=== PATIENT | female | born 1990 | race Caucasian/White ===

== ENCOUNTER 2017-09-29 17:22 | Inpatient (IN) | payer MEDICAID ==
[2017-09-29 18:55] LABS: ADD MAN DIFF? NO
[2017-09-29 18:56] LABS: WHITE BLOOD COUNT 9.2 10^3/ul (4.8-10.8)
[2017-09-29 18:56] LABS: BASOPHIL # 0.1 10^3/ul (0.0-0.1); BASOPHILS % 0.5 % (0.0-2.0); EOSINOPHILS # 0.1 10^3/ul (0.0-0.5); HEMATOCRIT 40.5 % (37.0-47.0); HEMOGLOBIN 13.7 g/dl (12.0-16.0); LYMPHOCYTES % 32.1 % (15.0-51.0); MEAN CORPUSCULAR HEMOGLOBIN 28.2 pg (29.0-33.0); MEAN CORPUSCULAR HGB CONC 33.8 g/dl (32.0-37.0); MEAN CORPUSCULAR VOLUME 83.3 fl (82.0-101.0); MEAN PLATELET VOLUME 11.1 fl (7.4-10.4); MONOCYTE # 0.5 10^3/ul (0.3-0.9); MONOCYTES % 5.5 % (0.0-11.0); NEUTROPHIL # 5.5 10^3/ul (1.6-7.5); NEUTROPHILS % 59.7 % (39.0-77.0); PLATELET COUNT 212 10^3/UL (140-415); RED BLOOD COUNT 4.86 10^6/ul (4.20-5.40); RED CELL DISTRIBUTION WIDTH 14.5 % (11.5-14.5)
[2017-09-29 19:07] LABS: INR 0.83; PARTIAL THROMBOPLASTIN TIME 29.4 Sec (25.0-35.0); PROTIME 11.5 Sec (11.9-14.9); PT RATIO 0.9
[2017-09-29 19:09] LABS: ALBUMIN/GLOBULIN RATIO 1.14; ANION GAP 15 (8-16); ASPARTATE AMINO TRANSFERASE 27 IU/L (15-46); BLOOD UREA NITROGEN 6 mg/dl (7-20); CARBON DIOXIDE 20 mmol/L (21-31); CHLORIDE 107 mmol/L (97-110); CREATININE 0.54 mg/dl (0.44-1.00); POTASSIUM 3.9 mmol/L (3.5-5.1); SODIUM 138 mmol/L (135-144); TOTAL PROTEIN 7.5 g/dl (6.1-8.1)
[2017-09-29] MEDS: LACTATED RINGER'S 1,000 ML IV (19:09)
[2017-09-29] MEDS: BETAMET NA PHOS/AC(6 MG/ML) 5ML INJ IM (19:10)
[2017-09-29 19:11] LABS: ALANINE AMINOTRANSFERASE 38 IU/L (13-69); ALKALINE PHOSPHATASE 224 IU/L (42-121); GLUCOSE 64 mg/dl (70-220)
[2017-09-29 19:45] LABS: FIBRIN SPLIT PRODUCT <10 ug/ml (<10)
[2017-09-29 20:28] LABS: ADD UMIC YES; UR ASCORBIC ACID NEGATIVE (NEGATIVE); UR BACTERIA FEW /HPF (NONE SEEN); UR BILIRUBIN (Dip) NEGATIVE (NEGATIVE); UR BLOOD (Dip) 1+ mg/dL (NEGATIVE); UR CLARITY CLEAR (CLEAR); UR COLOR STRAW (YELLOW); UR GLUCOSE (Dip) NEGATIVE (NEGATIVE); UR KETONES (Dip) NEGATIVE (NEGATIVE); UR LEUKOCYTE ESTERASE (Dip) NEGATIVE Leu/ul (NEGATIVE); UR NITRITE (Dip) NEGATIVE (NEGATIVE); UR RBC 0 /HPF (0-5); UR SPECIFIC GRAVITY (Dip) 1.004 (1.003-1.030); UR TOTAL PROTEIN (Dip) NEGATIVE (NEGATIVE); UR UROBILINOGEN (Dip) NEGATIVE (NEGATIVE); UR WBC 0 /HPF (0-5)
[2017-09-29] MEDS: LABETALOL 200 MG TAB PO (21:23)
[2017-09-30] MEDS: LACTATED RINGER'S 1,000 ML IV (02:58)
[2017-09-30] MEDS: LABETALOL 200 MG TAB PO ×2 (09:05→20:48)
[2017-09-30] MEDS: BETAMET NA PHOS/AC(6 MG/ML) 5ML INJ IM (18:20)
[2017-09-30 19:18] LABS: COLLECTION PERIOD 24 hrs
[2017-09-30 19:42] LABS: COLLECTION PERIOD 24 hrs; CREATININE CLEARANCE 150.9 mls/min (84.0-162.0); CREATININE,URINE RANDOM 36.67 mg/dl (20-320); SCRET 0.54 mg/dl (0.44-1.00); VOLUME 3200 ml/24hrs; VOLUME 3200 mls
[2017-09-30 22:01] LABS: RAPID PLASMA REAGIN NONREACTIVE (NR)
[2017-10-01] MEDS: LABETALOL 200 MG TAB PO ×2 (08:41→20:48)
[2017-10-02] MEDS: LABETALOL 200 MG TAB PO ×2 (09:23→21:25)
[2017-10-02] MEDS: CIPROFLOXACIN 500 MG TAB PO ×2 (13:03→19:53)
[2017-10-02] MEDS ORDERED: CIPROFLOXACIN 500 MG TAB PO (18:00)
[2017-10-02] MEDS: LACTATED RINGER'S 1,000 ML IV (22:32)
[2017-10-02] MEDS: LABETALOL HCL 20MG INJ IV (22:34)
[2017-10-02] MEDS: MAGNESIUM SULFATE 4 GM/100 ML 100 ML IVPB (23:45)
[2017-10-03] MEDS: MAGNESIUM SULFATE 20 GM/500 ML 500 ML IV ×3 (00:23→22:06)
[2017-10-03 01:35] LABS: ADD MAN DIFF? NO
[2017-10-03 01:40] LABS: BASOPHIL # 0.1 10^3/ul (0.0-0.1); BASOPHILS % 0.7 % (0.0-2.0); EOSINOPHILS % 0.3 % (0.0-7.0); HEMATOCRIT 34.1 % (37.0-47.0); HEMOGLOBIN 11.4 g/dl (12.0-16.0); LYMPHOCYTES # 2.8 10^3/ul (0.8-2.9); LYMPHOCYTES % 26.7 % (15.0-51.0); MEAN CORPUSCULAR HEMOGLOBIN 28.4 pg (29.0-33.0); MEAN CORPUSCULAR HGB CONC 33.4 g/dl (32.0-37.0); MEAN CORPUSCULAR VOLUME 84.8 fl (82.0-101.0); MEAN PLATELET VOLUME 12.3 fl (7.4-10.4); MONOCYTE # 1.1 10^3/ul (0.3-0.9); MONOCYTES % 9.9 % (0.0-11.0); NEUTROPHIL # 6.3 10^3/ul (1.6-7.5); NEUTROPHILS % 59.7 % (39.0-77.0); NUCLEATED RED BLOOD CELLS # 0.2 10^3/ul (0.0-0.0); NUCLEATED RED BLOOD CELLS% 1.7 /100WBC (0.0-0.0); PLATELET COUNT 199 10^3/UL (140-415); RED BLOOD COUNT 4.02 10^6/ul (4.20-5.40); RED CELL DISTRIBUTION WIDTH 14.8 % (11.5-14.5)
[2017-10-03 01:40] LABS: WHITE BLOOD COUNT 10.6 10^3/ul (4.8-10.8)
[2017-10-03] MEDS: LABETALOL HCL 20MG INJ IV ×2 (02:19→03:18)
[2017-10-03 02:30] LABS: HEPATITIS B SURFACE ANTIGEN NEGATIVE (NEGATIVE)
[2017-10-03 02:34] LABS: ALANINE AMINOTRANSFERASE 45 IU/L (13-69); ALBUMIN 3.3 g/dl (3.3-4.9); ALBUMIN/GLOBULIN RATIO 1.13; ALKALINE PHOSPHATASE 207 IU/L (42-121); ANION GAP 13 (8-16); ASPARTATE AMINO TRANSFERASE 33 IU/L (15-46); BLOOD UREA NITROGEN 13 mg/dl (7-20); CALCIUM 8.8 mg/dl (8.4-10.2); CARBON DIOXIDE 21 mmol/L (21-31); CHLORIDE 107 mmol/L (97-110); CREATININE 0.56 mg/dl (0.44-1.00); GLUCOSE 76 mg/dl (70-220); POTASSIUM 3.8 mmol/L (3.5-5.1); SODIUM 137 mmol/L (135-144); TOTAL PROTEIN 6.2 g/dl (6.1-8.1); URIC ACID 4.4 mg/dl (3.1-7.9)
[2017-10-03 02:43] LABS: PROTIME 11.1 Sec (11.9-14.9); PT RATIO 0.9
[2017-10-03 02:44] LABS: PARTIAL THROMBOPLASTIN TIME 26.2 Sec (25.0-35.0)
[2017-10-03] MEDS ORDERED: CITRIC ACID/SODIUM CITRATE 15 ML CUP ×2 (02:45→02:46)
[2017-10-03] MEDS: CITRIC ACID/SODIUM CITRATE 15 ML CUP PO (02:49)
[2017-10-03 03:41] LABS: ADD UMIC NO; UR ASCORBIC ACID NEGATIVE (NEGATIVE); UR BILIRUBIN (Dip) NEGATIVE (NEGATIVE); UR BLOOD (Dip) NEGATIVE (NEGATIVE); UR CLARITY CLEAR (CLEAR); UR COLOR COLORLESS (YELLOW); UR GLUCOSE (Dip) NEGATIVE (NEGATIVE); UR KETONES (Dip) NEGATIVE (NEGATIVE); UR LEUKOCYTE ESTERASE (Dip) NEGATIVE Leu/ul (NEGATIVE); UR NITRITE (Dip) NEGATIVE (NEGATIVE); UR SPECIFIC GRAVITY (Dip) 1.006 (1.003-1.030); UR TOTAL PROTEIN (Dip) NEGATIVE (NEGATIVE); UR UROBILINOGEN (Dip) NEGATIVE (NEGATIVE)
[2017-10-03] MEDS: NIFEdipine 10 MG CAP PO ×3 (04:03→18:14)
[2017-10-03] MEDS ORDERED: hydrALAzine 20 MG INJ (04:16)
[2017-10-03] MEDS: hydrALAzine 20 MG INJ IV (04:25)
[2017-10-03] MEDS: LACTATED RINGER'S 1,000 ML IV ×2 (06:15→18:14)
[2017-10-03] MEDS: CIPROFLOXACIN 500 MG TAB PO (06:15)
[2017-10-03] MEDS: LABETALOL 200 MG TAB PO ×2 (09:36→21:06)
[2017-10-03] MEDS ORDERED: ONDANSETRON 4 MG INJ IV (10:19)
[2017-10-03] MEDS ORDERED: MISOPROSTOL 200 MCG TAB PR (10:30)
[2017-10-03] MEDS ORDERED: FAMOTIDINE 20 MG INJ IV (10:30)
[2017-10-03] MEDS ORDERED: OXYTOCIN 30 UNITS/LR 500 ML IV ×2 (10:30→15:00)
[2017-10-03] MEDS ORDERED: CARBOPROST 250 MCG INJ IM (10:30)
[2017-10-03] MEDS ORDERED: CEFAZOLIN 2 GM/50 ML (PMX) 50 ML IV (10:30)
[2017-10-03] MEDS ORDERED: METHYLERGONOVINE 0.2 MG INJ IM (10:30)
[2017-10-03] MEDS ORDERED: METOCLOPRAMIDE 10 MG INJ IM (10:30)
[2017-10-03] MEDS: DINOPROSTONE 10 MG VAG SUPP VAG (14:21)
[2017-10-03] MEDS ORDERED: BUTORPHANOL 2 MG INJ IV (15:00)
[2017-10-03] MEDS: AMPICILLIN 2 GM/NS (PMX) 100 ML IV (15:10)
[2017-10-03 16:32] LABS: RAPID PLASMA REAGIN NONREACTIVE (NR)
[2017-10-03] MEDS: CIPROFLOXACIN 500 MG TAB GTB (18:14)
[2017-10-03 19:32] LABS: MAGNESIUM 6.3 mg/dl (1.7-2.5)
[2017-10-03] MEDS: AMPICILLIN 1 GM/NS (PMX) 50 ML IV (19:57)
[2017-10-04] MEDS: AMPICILLIN 1 GM/NS (PMX) 50 ML IV ×7 (00:10→23:42)
[2017-10-04] MEDS: NIFEdipine 10 MG CAP PO ×5 (00:12→23:44)
[2017-10-04 01:27] LABS: MAGNESIUM 6.1 mg/dl (1.7-2.5)
[2017-10-04] MEDS: CIPROFLOXACIN 500 MG TAB GTB ×2 (05:58→18:29)
[2017-10-04] MEDS: LACTATED RINGER'S 1,000 ML IV ×4 (06:00→23:37)
[2017-10-04] MEDS: MAGNESIUM SULFATE 20 GM/500 ML 500 ML IV ×2 (08:10→23:39)
[2017-10-04 08:21] LABS: MAGNESIUM 6.6 mg/dl (1.7-2.5)
[2017-10-04] MEDS: LABETALOL 200 MG TAB PO ×2 (09:30→20:43)
[2017-10-04 13:17] LABS: MAGNESIUM 6.8 mg/dl (1.7-2.5)
[2017-10-04] MEDS: DINOPROSTONE 10 MG VAG SUPP VAG (18:24)
[2017-10-04 20:08] LABS: MAGNESIUM 5.3 mg/dl (1.7-2.5)
[2017-10-05 01:56] LABS: MAGNESIUM 5.1 mg/dl (1.7-2.5)
[2017-10-05] MEDS: AMPICILLIN 1 GM/NS (PMX) 50 ML IV ×5 (03:17→18:09)
[2017-10-05] MEDS: NIFEdipine 10 MG CAP PO ×4 (06:40→23:49)
[2017-10-05] MEDS: CIPROFLOXACIN 500 MG TAB GTB ×2 (06:44→18:08)
[2017-10-05] MEDS: LABETALOL 200 MG TAB PO ×2 (08:54→21:14)
[2017-10-05] MEDS: LACTATED RINGER'S 1,000 ML IV (09:44)
[2017-10-05 13:57] LABS: ADD UMIC YES; UR ASCORBIC ACID NEGATIVE (NEGATIVE); UR BILIRUBIN (Dip) NEGATIVE (NEGATIVE); UR BLOOD (Dip) NEGATIVE (NEGATIVE); UR CLARITY CLEAR (CLEAR); UR COLOR YELLOW (YELLOW); UR GLUCOSE (Dip) NEGATIVE (NEGATIVE); UR KETONES (Dip) NEGATIVE (NEGATIVE); UR LEUKOCYTE ESTERASE (Dip) NEGATIVE Leu/ul (NEGATIVE); UR MUCUS FEW /HPF (NONE SEEN); UR NITRITE (Dip) NEGATIVE (NEGATIVE); UR RBC 1 /HPF (0-5); UR SPECIFIC GRAVITY (Dip) 1.021 (1.003-1.030); UR SQUAMOUS EPITHELIAL CELL FEW /HPF (FEW); UR TOTAL PROTEIN (Dip) 1+ mg/dl (NEGATIVE); UR UROBILINOGEN (Dip) NEGATIVE (NEGATIVE); UR WBC 2 /HPF (0-5)
[2017-10-05 14:53] LABS: ADD MAN DIFF? NO
[2017-10-05 15:01] LABS: WHITE BLOOD COUNT 8.3 10^3/ul (4.8-10.8)
[2017-10-05 15:01] LABS: BASOPHILS % 0.4 % (0.0-2.0); EOSINOPHILS # 0.1 10^3/ul (0.0-0.5); HEMATOCRIT 37.4 % (37.0-47.0); HEMOGLOBIN 12.7 g/dl (12.0-16.0); LYMPHOCYTES # 2.3 10^3/ul (0.8-2.9); LYMPHOCYTES % 28.1 % (15.0-51.0); MEAN CORPUSCULAR HEMOGLOBIN 28.6 pg (29.0-33.0); MEAN CORPUSCULAR VOLUME 84.2 fl (82.0-101.0); MEAN PLATELET VOLUME 11.5 fl (7.4-10.4); MONOCYTE # 0.5 10^3/ul (0.3-0.9); MONOCYTES % 6.1 % (0.0-11.0); NEUTROPHIL # 5.3 10^3/ul (1.6-7.5); NEUTROPHILS % 63.7 % (39.0-77.0); PLATELET COUNT 150 10^3/UL (140-415); RED BLOOD COUNT 4.44 10^6/ul (4.20-5.40); RED CELL DISTRIBUTION WIDTH 15.3 % (11.5-14.5)
[2017-10-05 15:24] LABS: INR 0.73; PROTIME 10.3 Sec (11.9-14.9); PT RATIO 0.8
[2017-10-05 15:25] LABS: PARTIAL THROMBOPLASTIN TIME 29.7 Sec (25.0-35.0)
[2017-10-05 15:28] LABS: ALANINE AMINOTRANSFERASE 45 IU/L (13-69); ALBUMIN 3.6 g/dl (3.3-4.9); ALBUMIN/GLOBULIN RATIO 1.05; ALKALINE PHOSPHATASE 297 IU/L (42-121); ANION GAP 15 (8-16); ASPARTATE AMINO TRANSFERASE 33 IU/L (15-46); BLOOD UREA NITROGEN 12 mg/dl (7-20); CALCIUM 6.9 mg/dl (8.4-10.2); CARBON DIOXIDE 20 mmol/L (21-31); CHLORIDE 105 mmol/L (97-110); CREATININE 0.66 mg/dl (0.44-1.00); GLUCOSE 93 mg/dl (70-220); POTASSIUM 3.8 mmol/L (3.5-5.1); SODIUM 136 mmol/L (135-144); URIC ACID 5.5 mg/dl (3.1-7.9)
[2017-10-05 15:30] LABS: MAGNESIUM 4.9 mg/dl (1.7-2.5)
[2017-10-05] MEDS: MAGNESIUM SULFATE 20 GM/500 ML 500 ML IV (18:13)
[2017-10-05] MEDS ORDERED: OXYTOCIN 30 UNITS/LR 500 ML IV ×2 (20:30)
[2017-10-05] MEDS ORDERED: METHYLERGONOVINE 0.2 MG INJ IM (20:30)
[2017-10-05] MEDS ORDERED: CARBOPROST 250 MCG INJ IM (20:30)
[2017-10-05] MEDS ORDERED: MISOPROSTOL 200 MCG TAB PR (20:30)
[2017-10-06 01:28] LABS: MAGNESIUM 4.9 mg/dl (1.7-2.5)
[2017-10-06] MEDS: LACTATED RINGER'S 1,000 ML IV ×3 (03:07→20:11)
[2017-10-06] MEDS: CIPROFLOXACIN 500 MG TAB PO ×2 (05:45→18:24)
[2017-10-06] MEDS: NIFEdipine 10 MG CAP PO ×2 (05:50→12:00)
[2017-10-06] MEDS: LABETALOL 200 MG TAB PO ×2 (09:09→15:25)
[2017-10-06] MEDS ORDERED: CEFAZOLIN 2 GM/50 ML (PMX) 50 ML IVPB (12:38)
[2017-10-06] MEDS: METOCLOPRAMIDE 10 MG INJ IV (12:42)
[2017-10-06] MEDS: FAMOTIDINE 20 MG INJ IV (12:42)
[2017-10-06] MEDS ORDERED: FENTAnyl 50 MCG/ML VIAL (12:59)
[2017-10-06] MEDS ORDERED: morphine SULFATE/PF (10 MG/10 ML) INJ (12:59)
[2017-10-06] MEDS ORDERED: PHENYLephrine (100 MCG/ML) 5ML SYG (12:59)
[2017-10-06] MEDS: CEFAZOLIN 2 GM/50 ML (PMX) 50 ML IVPB (13:10)
[2017-10-06] MEDS ORDERED: DEXAMETHASONE 4 MG/ML 1 ML INJ (13:17)
[2017-10-06] MEDS ORDERED: ONDANSETRON 4 MG INJ (13:17)
[2017-10-06] MEDS: OXYTOCIN 30 UNITS/LR 500 ML IV ×2 (14:26→18:45)
[2017-10-06] MEDS ORDERED: ONDANSETRON 4 MG INJ IV (14:30)
[2017-10-06] MEDS ORDERED: HYDROmorphONE 0.5 MG/0.5 ML SYG IV ×2 (14:30)
[2017-10-06] MEDS ORDERED: ZOLPIDEM 5 MG TAB PO (14:30)
[2017-10-06] MEDS ORDERED: HYDROmorphONE 1 MG/ML SYG IV ×2 (14:30)
[2017-10-06] MEDS ORDERED: NALOXONE (0.4 MG/ML) INJ IV (14:30)
[2017-10-06] MEDS: KETOROLAC 30 MG INJ IV (14:59)
[2017-10-06] MEDS ORDERED: LABETALOL HCL 20MG INJ IV ×2 (15:30→16:00)
[2017-10-06] MEDS ORDERED: LABETALOL HCL 20MG INJ (15:32)
[2017-10-06] MEDS: hydrALAzine 20 MG INJ IV (17:11)
[2017-10-06] MEDS: MAGNESIUM SULFATE 20 GM/500 ML 500 ML IV (17:17)
[2017-10-06] MEDS ORDERED: NA PHOSPHATE/BIPHOS 133 ML ENEMA PR (17:30)
[2017-10-06] MEDS ORDERED: METHYLERGONOVINE 0.2 MG INJ IM (17:30)
[2017-10-06] MEDS ORDERED: HYDROCODONE/APAP (5/325) TAB PO (17:30)
[2017-10-06] MEDS ORDERED: OXYTOCIN 30 UNITS/LR 500 ML IV (17:30)
[2017-10-06] MEDS ORDERED: CARBOPROST 250 MCG INJ IM (17:30)
[2017-10-06] MEDS ORDERED: LANOLIN 7 GM TUBE TOP (17:30)
[2017-10-06] MEDS ORDERED: CEFAZOLIN 2 GM/50 ML (PMX) 50 ML IV (17:30)
[2017-10-06] MEDS ORDERED: MISOPROSTOL 200 MCG TAB PR (17:30)
[2017-10-06] MEDS ORDERED: hydrALAzine 20 MG INJ IV (18:00)
[2017-10-06] MEDS: metroNIDAZOLE 500 MG TAB PO (18:24)
[2017-10-06] MEDS: CLINDAMYCIN 300 MG CAP PO (18:24)
[2017-10-06] MEDS ORDERED: LABETALOL 200 MG TAB PO (21:00)
[2017-10-06] MEDS: CEFAZOLIN 2 GM/50 ML (PMX) 50 ML IV (21:54)
[2017-10-06] MEDS: ACETAMINOPHEN 1000MG/100ML IV 100 ML IVPB (22:26)
[2017-10-06] MEDS: SENNA/DOCUSATE NA (8.6MG/50MG) TAB PO (22:47)
[2017-10-07] MEDS: metroNIDAZOLE 500 MG TAB PO ×4 (00:04→17:50)
[2017-10-07 01:09] LABS: MAGNESIUM 4.3 mg/dl (1.7-2.5)
[2017-10-07] MEDS: LACTATED RINGER'S 1,000 ML IV ×3 (04:52→17:03)
[2017-10-07] MEDS: KETOROLAC 30 MG INJ IV (04:53)
[2017-10-07] MEDS: CEFAZOLIN 2 GM/50 ML (PMX) 50 ML IV ×2 (05:02→13:09)
[2017-10-07] MEDS: CIPROFLOXACIN 500 MG TAB PO ×2 (05:50→17:50)
[2017-10-07] MEDS: IBUPROFEN 800 MG TAB PO ×3 (05:50→21:28)
[2017-10-07 08:58] LABS: ADD MAN DIFF? NO
[2017-10-07] MEDS: SENNA/DOCUSATE NA (8.6MG/50MG) TAB PO ×2 (09:00→21:28)
[2017-10-07 09:17] LABS: BASOPHILS % 0.3 % (0.0-2.0); EOSINOPHILS % 0.1 % (0.0-7.0); HEMATOCRIT 30.1 % (37.0-47.0); HEMOGLOBIN 10.2 g/dl (12.0-16.0); LYMPHOCYTES # 2.5 10^3/ul (0.8-2.9); MEAN CORPUSCULAR HEMOGLOBIN 28.2 pg (29.0-33.0); MEAN CORPUSCULAR HGB CONC 33.9 g/dl (32.0-37.0); MEAN CORPUSCULAR VOLUME 83.1 fl (82.0-101.0); MEAN PLATELET VOLUME 11.1 fl (7.4-10.4); MONOCYTE # 0.6 10^3/ul (0.3-0.9); MONOCYTES % 5.5 % (0.0-11.0); NEUTROPHIL # 6.8 10^3/ul (1.6-7.5); NEUTROPHILS % 68.5 % (39.0-77.0); PLATELET COUNT 133 10^3/UL (140-415); RED BLOOD COUNT 3.62 10^6/ul (4.20-5.40); RED CELL DISTRIBUTION WIDTH 14.3 % (11.5-14.5)
[2017-10-07] MEDS: LABETALOL 200 MG TAB PO ×2 (09:38→21:28)
[2017-10-07] MEDS: ENOXAPARIN 40 MG/0.4 ML SYG SC (09:43)
[2017-10-07 09:45] LABS: POSITIVE DIFF @See below
[2017-10-07] MEDS: BISACODYL 10 MG SUPP PR ×2 (10:30→21:28)
[2017-10-07] MEDS: MAGNESIUM SULFATE 20 GM/500 ML 500 ML IV (13:03)
[2017-10-07] MEDS: OXYCODONE/ACETAMINOPHEN (5/325) TAB PO (22:05)
[2017-10-08] MEDS: metroNIDAZOLE 500 MG TAB PO ×5 (01:03→23:49)
[2017-10-08] MEDS: IBUPROFEN 800 MG TAB PO ×3 (06:58→21:16)
[2017-10-08] MEDS: CIPROFLOXACIN 500 MG TAB PO ×2 (06:58→17:56)
[2017-10-08 07:01] LABS: ADD MAN DIFF? NO
[2017-10-08 07:07] LABS: BASOPHILS % 0.3 % (0.0-2.0); EOSINOPHILS # 0.1 10^3/ul (0.0-0.5); EOSINOPHILS % 1.3 % (0.0-7.0); HEMATOCRIT 29.3 % (37.0-47.0); HEMOGLOBIN 9.8 g/dl (12.0-16.0); LYMPHOCYTES # 2.2 10^3/ul (0.8-2.9); LYMPHOCYTES % 28.2 % (15.0-51.0); MEAN CORPUSCULAR HGB CONC 33.4 g/dl (32.0-37.0); MEAN CORPUSCULAR VOLUME 83.7 fl (82.0-101.0); MEAN PLATELET VOLUME 10.8 fl (7.4-10.4); MONOCYTE # 0.4 10^3/ul (0.3-0.9); MONOCYTES % 5.4 % (0.0-11.0); NEUTROPHIL # 5.1 10^3/ul (1.6-7.5); NEUTROPHILS % 63.9 % (39.0-77.0); PLATELET COUNT 134 10^3/UL (140-415); RED CELL DISTRIBUTION WIDTH 14.8 % (11.5-14.5)
[2017-10-08 07:55] LABS: ALANINE AMINOTRANSFERASE 38 IU/L (13-69); ALBUMIN 2.8 g/dl (3.3-4.9); ALKALINE PHOSPHATASE 188 IU/L (42-121); ANION GAP 11 (8-16); ASPARTATE AMINO TRANSFERASE 27 IU/L (15-46); BLOOD UREA NITROGEN 15 mg/dl (7-20); CALCIUM 7.6 mg/dl (8.4-10.2); CARBON DIOXIDE 23 mmol/L (21-31); CHLORIDE 107 mmol/L (97-110); CREATININE 0.68 mg/dl (0.44-1.00); GLUCOSE 65 mg/dl (70-220); POTASSIUM 4.1 mmol/L (3.5-5.1); SODIUM 137 mmol/L (135-144); TOTAL PROTEIN 5.6 g/dl (6.1-8.1)
[2017-10-08] MEDS: LABETALOL 200 MG TAB PO ×2 (09:13→21:17)
[2017-10-08] MEDS: SENNA/DOCUSATE NA (8.6MG/50MG) TAB PO ×2 (09:13→21:16)
[2017-10-08] MEDS: ENOXAPARIN 40 MG/0.4 ML SYG SC (09:15)
[2017-10-08] MEDS: INFLUENZA VIRUS VACCINE 0.5 ML (DISPENSING) IM* (12:01)
[2017-10-08] MEDS: hydrALAzine 20 MG INJ IV (16:51)
[2017-10-08] MEDS: AMLODIPINE 10 MG TAB PO (18:31)
[2017-10-09] MEDS: metroNIDAZOLE 500 MG TAB PO ×3 (05:55→18:13)
[2017-10-09] MEDS: IBUPROFEN 800 MG TAB PO ×3 (05:55→21:02)
[2017-10-09] MEDS: CIPROFLOXACIN 500 MG TAB PO ×2 (05:59→18:13)
[2017-10-09] MEDS ORDERED: DIPHTH/TET/ACEL PERTUSS (ADULT) 0.5 ML VIAL IM* (09:00)
[2017-10-09] MEDS ORDERED: MEASLES,MUMPS,RUBELLA VACCINE INJ SC* (09:00)
[2017-10-09] MEDS: AMLODIPINE 10 MG TAB PO (09:02)
[2017-10-09] MEDS: SENNA/DOCUSATE NA (8.6MG/50MG) TAB PO ×2 (09:03→20:59)
[2017-10-09] MEDS: LABETALOL 200 MG TAB PO ×2 (09:03→21:00)
[2017-10-09] MEDS: ENOXAPARIN 40 MG/0.4 ML SYG SC (09:05)
[2017-10-09 11:45] LABS: ADD MAN DIFF? NO
[2017-10-09 11:52] LABS: WHITE BLOOD COUNT 11.4 10^3/ul (4.8-10.8)
[2017-10-09 11:52] LABS: BASOPHIL # 0.1 10^3/ul (0.0-0.1); BASOPHILS % 0.6 % (0.0-2.0); EOSINOPHILS # 0.3 10^3/ul (0.0-0.5); EOSINOPHILS % 2.3 % (0.0-7.0); HEMATOCRIT 35.2 % (37.0-47.0); HEMOGLOBIN 11.5 g/dl (12.0-16.0); LYMPHOCYTES % 17.6 % (15.0-51.0); MEAN CORPUSCULAR HGB CONC 32.7 g/dl (32.0-37.0); MEAN CORPUSCULAR VOLUME 85.6 fl (82.0-101.0); MEAN PLATELET VOLUME 10.6 fl (7.4-10.4); MONOCYTE # 0.7 10^3/ul (0.3-0.9); MONOCYTES % 6.5 % (0.0-11.0); NEUTROPHIL # 8.1 10^3/ul (1.6-7.5); NEUTROPHILS % 71.8 % (39.0-77.0); PLATELET COUNT 195 10^3/UL (140-415); RED BLOOD COUNT 4.11 10^6/ul (4.20-5.40); RED CELL DISTRIBUTION WIDTH 14.7 % (11.5-14.5)
[2017-10-09 12:07] LABS: ALANINE AMINOTRANSFERASE 43 IU/L (13-69); ALBUMIN 3.5 g/dl (3.3-4.9); ALBUMIN/GLOBULIN RATIO 1.09; ALKALINE PHOSPHATASE 205 IU/L (42-121); ANION GAP 13 (8-16); ASPARTATE AMINO TRANSFERASE 41 IU/L (15-46); BLOOD UREA NITROGEN 11 mg/dl (7-20); CALCIUM 8.4 mg/dl (8.4-10.2); CARBON DIOXIDE 21 mmol/L (21-31); CHLORIDE 105 mmol/L (97-110); CREATININE 0.58 mg/dl (0.44-1.00); GLUCOSE 92 mg/dl (70-220); POTASSIUM 3.8 mmol/L (3.5-5.1); SODIUM 135 mmol/L (135-144); TOTAL PROTEIN 6.7 g/dl (6.1-8.1)
[2017-10-09 15:01] LABS: ANA SCREEN NEGATIVE (NEGATIVE)
[2017-10-10] MEDS: metroNIDAZOLE 500 MG TAB PO ×4 (00:15→17:42)
[2017-10-10] MEDS: IBUPROFEN 800 MG TAB PO ×3 (05:36→21:04)
[2017-10-10] MEDS: CIPROFLOXACIN 500 MG TAB PO ×2 (05:36→17:42)
[2017-10-10] MEDS: ENOXAPARIN 40 MG/0.4 ML SYG SC (08:46)
[2017-10-10] MEDS: AMLODIPINE 10 MG TAB PO (08:47)
[2017-10-10] MEDS: SENNA/DOCUSATE NA (8.6MG/50MG) TAB PO ×2 (08:48→21:03)
[2017-10-10] MEDS: LABETALOL 200 MG TAB PO ×2 (08:48→21:04)
[2017-10-10 13:33] LABS: SMOOTH MUSCLE AB SCREEN NEGATIVE (NEGATIVE)
== END 2017-10-10 21:50 | disposition home or self-care (01) | DRG 765 ==
LOC: OBT 17:22 → L-D 10-02 23:35 → PP1 10-06 21:03 → L-D 17:41 → OBT 18:15 → L-D 18:15 → PP1 19:24
PROVIDERS: Obstetrics & Gynecology
PROC: 10D00Z1 Extraction of Products of Conception, Low, Open Approach (ICD-10-PCS; principal; 2017-10-06 13:00)
DX: O14.14 Severe pre-eclampsia complicating childbirth (principal); N39.0 Urinary tract infection, site not specified; O75.3 Other infection during labor; O99.824 Streptococcus B carrier state complicating childbirth; O61.0 Failed medical induction of labor; Z37.0 Single live birth; Z3A.34 34 weeks gestation of pregnancy; B96.20 Unspecified Escherichia coli [E. coli] as the cause of diseases classified elsewhere; Z16.24 Resistance to multiple antibiotics; Z23 Encounter for immunization
CPT/HCPCS: 76815; 76818; 80053; 81001; 81003; 82575; 83735; 84156; 84560; 85025; 85362; 85384; 85610; 85613; 85730; 86038; 86146; 86147; 86255; 86592; 86850; 86870; 86900; 86901; 87086; 87340; 88307; 90686; 94760; 99464